=== PATIENT | male | born 1965 | race Caucasian/White ===

== ENCOUNTER 2018-03-03 17:39 | Emergency (ER) | payer OTHER, BC ==
[2018-03-03 17:49] VITALS: BP 147/101; PULSE 104; TEMP 98.8; BMI 36.6
[2018-03-03] MEDS ORDERED: IBUPROFEN 600 MG TABLET (FP) PO ONE ×2 (18:04→18:09)
[2018-03-03] MEDS ORDERED: DIPHTH,PERTUSS(ACELL),TET 0.5 ML DISP.SYRIN IM ONE (18:05)
--- NOTE | 2018-03-03 18:08 | PDOC ---
History of Present Illness - General History Source: Patient <Gloria Collins - Last Filed: 03/03/18 18:41> - History of Present Illness Initial Comments: This patient is a 52 year old male, with a PMHx of HTN, Hyperlipidemia, psoriasis, 4 left knee surgeries (meniscus repair and slight tear in ligament), who presents with right knee injury at 11:00 am today. Patient states that he tripped over some equipment and subsequently injured his right knee. He states that he put ice on his knee. He states that he took ibuprofen for the pain. He states that it began to swell and turn red and became warm to touch so he decided to come to the ER. Patient is unable to recall last tetanus PCP: Dr. Mcbride ([place]) Orthopedist: Dr. Cardenas <Portia Engle - Last Filed: 03/03/18 18:45> - General Chief Complaint: Injury Stated Complaint: RT KNEE INJURY Time Seen by Provider: 03/03/18 17:52 Past History - Past Medical History COPD: No HTN: Yes Hypercholesterolemia: Yes - Surgical History Orthopedic Surgery: Yes - Immunization History Immunization Up to Date: Yes - Suicide/Smoking/Psychosocial Hx Smoking History: Never smoked Have you smoked in the past 12 months: No Information on smoking cessation initiated: No 'Breaking Loose' booklet given: 06/04/13 Hx Alcohol Use: (occasional) Drug/Substance Use Hx: No Substance Use Type: Alcohol Hx Substance Use Treatment: No <Gloria Collins - Last Filed: 03/03/18 18:41> <Portia Engle - Last Filed: 03/03/18 18:45> - Past Medical History Allergies/Adverse Reactions: Allergies Allergy/AdvReac Type Severity Reaction Status Date / Time No Known Allergies Allergy Verified 03/03/18 17:40 Home Medications: Ambulatory Orders Ibuprofen 400 mg PO ASDIR 03/03/18 Ixekizumab [Taltz Syringe] 80 mg SQ ASDIR 03/03/18 Review of Systems - Review of Systems Comments:: GENERAL/CONSTITUTIONAL: No fever or chills. No weakness. HEAD, EYES, EARS, NOSE AND THROAT: No change in vision. No ear pain or discharge. No sore throat. CARDIOVASCULAR: No chest pain or shortness of breath. RESPIRATORY: No cough, wheezing, or hemoptysis. GASTROINTESTINAL: No nausea, vomiting, diarrhea or constipation. GENITOURINARY: No dysuria, frequency, or change in urination. MUSCULOSKELETAL: +right knee pain. No neck or back pain. SKIN: No rash NEUROLOGIC: No headache, vertigo, loss of consciousness, or change in strength/ sensation. ENDOCRINE: No increased thirst. No abnormal weight change. HEMATOLOGIC/LYMPHATIC: No anemia, easy bleeding, or history of blood clots. ALLERGIC/IMMUNOLOGIC: No hives or skin allergy. <Portia Engle - Last Filed: 03/03/18 18:45> *Physical Exam - Vital Signs Last Vital Signs Temp Pulse Resp BP Pulse Ox 98.8 F 104 H 20 147/101 H 100 03/03/18 17:39 03/03/18 17:39 03/03/18 17:39 03/03/18 17:39 03/03/18 17:39 <Gloria Collins S - Last Filed: 03/03/18 18:41> - Vital Signs Last Vital Signs Temp Pulse Resp BP Pulse Ox 98.8 F 104 H 20 147/101 H 100 03/03/18 17:39 03/03/18 17:39 03/03/18 17:39 03/03/18 17:39 03/03/18 17:39 - Physical Exam Comments: GENERAL: Awake, alert, and fully oriented, in no acute distress. Obese. HEAD: No signs of trauma EXTREMITIES: Painful and limited extension of right lower extremity. Tenderness at the base of the patella and the medial aspect of right knee. Minimal errythema on right kneecap. No clubbing or cyanosis. No cords. NEUROLOGICAL: Cranial nerves II through XII grossly intact. Normal speech, normal gait. Patient ambulated into ED. SKIN: Superficial abrasion on right kneecap. Warm, Dry, normal turgor, no rashes. <Portia Engle - Last Filed: 03/03/18 18:45> ED Treatment Course - Medications Given in the ED: ED Medications Discontinued Medications Generic Name Dose Route Start Last Admin Trade Name Freq PRN Reason Stop Dose Admin Diphtheria/Tetanus/Acell Pertussis 0.5 ml 03/03/18 18:05 03/03/18 18:14 Boostrix - IM 03/03/18 18:06 0.5 ml .ONCE ONE Administration Ibuprofen 600 mg 03/03/18 18:04 03/03/18 18:13 Motrin - PO 03/03/18 18:05 600 mg ONCE ONE Administration <Portia Engle - Last Filed: 03/03/18 18:45> Medical Decision Making - Medical Decision Making Ordered x-ray Ordered Motrin for pain Gave boostrix 03/03/18 18:45 Placed knee immobilizer. <Portia Engle - Last Filed: 03/03/18 18:45> *DC/Admit/Observation/Transfer - Discharge Dispostion Decision to Admit order: No <Gloria Collins - Last Filed: 03/03/18 18:41> - Attestations Scribe Attestion: 03/03/18 18:20 Documentation prepared by Portia Engle, acting as medical reception for Gloria Collins MD. <Portia Engle - Last Filed: 03/03/18 18:45> Diagnosis at time of Disposition: Knee joint injury Qualifiers: Encounter type: initial encounter Laterality: right Qualified Code(s): S89.91XA - Unspecified injury of right lower leg, initial encounter - Discharge Dispostion Disposition: HOME Condition at time of disposition: Stable - Referrals Referrals: Kehinde Mcbride [Primary Care Provider] - Wiliam Cardenas MD [Non Staff, Medical] - - Patient Instructions Printed Discharge Instructions: DI for Knee Sprain Additional Instructions: Elevation, rest , Motrin for pain with food - Post Discharge Activity Forms/Work/School Notes: Back to Work
== END 2018-03-03 18:45 | disposition home or self-care (01) ==
LOC: FER 17:39
PROC: 2W3QX1Z Immobilization of Right Lower Leg using Splint (ICD-10-PCS; principal; 2018-03-03)
DX: S89.91XA Unspecified injury of right lower leg, initial encounter (principal); X58.XXXA Exposure to other specified factors, initial encounter; Y93.89 Activity, other specified; Y92.9 Unspecified place or not applicable; I10 Essential (primary) hypertension; E78.5 Hyperlipidemia, unspecified; L40.9 Psoriasis, unspecified
CPT/HCPCS: 73562-TC-RT-FY; 90715; 99282-25

== ENCOUNTER 2019-05-15 11:20 | Emergency (ER) | payer BC, OTHER ==
--- NOTE | 2019-05-15 11:40 | PDOC ---
History of Present Illness - General Chief Complaint: Burn Stated Complaint: HOT WATER BURN RIGHT FOOT AT WORK Time Seen by Provider: 05/15/19 11:22 History Source: Patient Exam Limitations: No Limitations - History of Present Illness Initial Comments: 05/15/19 11:23 Mr. Hoyos is a 53-year-old male who presents emergency department with a complaint of right foot burn. Patient was working in a kitchen. He had a collagen of hot water which fell onto his right foot. He was wearing work shoes (there was a mesh over his instep) No trauma Last tetanus shot was 1 year ago No other injuries PMH: Denies PSH: Left knee surgery x4, right knee surgery x1, rhinoplasty Meds: Otezla ALL: NKDA Social: Alcohol use daily, no drugs, no tobacco FH: Noncontributory ROS: GENERAL/CONSTITUTIONAL: No: fever, chills, weakness, loss of appetite. HEAD, EYES, EARS, NOSE AND THROAT: No: change in vision, ear pain, discharge, sore throat, throat swelling. CARDIOVASCULAR: No: chest pain, lightheadedness, palpitations, syncope RESPIRATORY: No: cough, shortness of breath, wheezing, hemoptysis, stridor. GASTROINTESTINAL: No: nausea, vomiting, diarrhea, abdominal cramping, rectal bleeding, constipation. GENITOURINARY: No: dysuria, hematuria, frequency, urgency, flank pain. MUSCULOSKELETAL: No: back pain, neck pain, joint pain, muscle swelling or pain SKIN : Yes: Burn to the dorsum of the right foot no: lesions, pallor, rash or easy bruising. NEUROLOGIC: No: headache, vertigo, paresthesias, weakness ENDOCRINE: No: unexplained weight gain or loss HEMATOLOGIC/LYMPHATIC: No: anemia, easy bleeding, swelling nodes. PE: GENERAL: The patient is in no acute distress. HEAD: Normal with no signs of trauma. EYES: PERRLA, EOMI, sclera anicteric, conjunctiva clear. ENT: Ears normal, nares patent, oropharynx clear without exudates. Moist mucous membranes. NECK: Normal range of motion, supple LUNGS: Breath sounds equal, clear to auscultation bilaterally. No wheezes, and no crackles. HEART:Regular rate and rhythm, normal S1 and S2 without murmur, rub or gallop. ABDOMEN: Soft, nontender, normoactive bowel sounds. EXTREMITIES: Normal range of motion, no edema. NEUROLOGICAL: Cranial nerves II through XII grossly intact. Normal speech. No focal neurological deficits. MUSCULOSKELETAL: Back non-tender to palpation SKIN: There are 3 areas of superficial gomez noted on the dorsum of the right foot Each measuring approximately 2 cm in diameter 1 overlying the great toe 2 overlying the distal dorsum of the right foot No drainage Is this a multiple visit Asthma Patient?: No Past History - Past Medical History Allergies/Adverse Reactions: Allergies Allergy/AdvReac Type Severity Reaction Status Date / Time No Known Allergies Allergy Verified 05/15/19 11:22 Home Medications: Ambulatory Orders Apremilast [Otezla] 30 mg PO BID 05/15/19 Silver Sulfadiazine 1% Top Cr [Silvadene] 1 applic TP BID PRN #1 jar 05/15/19 COPD: No HTN: Yes Hypercholesterolemia: Yes - Surgical History Orthopedic Surgery: Yes - Immunization History Immunization Up to Date: Yes - Psycho Social/Smoking Cessation Hx Smoking History: Never smoked Have you smoked in the past 12 months: No 'Breaking Loose' booklet given: 06/04/13 Hx Alcohol Use: (occasional) Drug/Substance Use Hx: No Substance Use Type: Alcohol Hx Substance Use Treatment: No Medical Decision Making - Medical Decision Making 05/15/19 11:40 53-year-old male presenting to the emergency department with a hot water burn to the dorsum of his right foot Burn appears to be superficial at this time There was no hot oil 2+ DP Sensation intact Capillary refill less than 2-second Moving toes with no difficulty We will discharged home Patient to take NSAIDs for pain Silvadene topically Discharged home Follow-up with primary care physician Return to the ER for any other concerns or complaint Patient also asked to take photographs of his foot to monitor for signs of superinfection Discharge - Discharge Information Problems reviewed: Yes Clinical Impression/Diagnosis: Superficial burn of right foot Qualifiers: Encounter type: initial encounter Qualified Code(s): T25.121A - Burn of first degree of right foot, initial encounter Condition: Stable Disposition: HOME - Admission No - Follow up/Referral Referrals: Kehinde Mcbride [Primary Care Provider] - - Patient Discharge Instructions Patient Printed Discharge Instructions: How to Take Care of a Burn, DI for Gomez Additional Instructions: Mr. Hoyos, Thank you for coming into the emergency department today You have what appears currently to be a superficial/partial thickness burn to the top of your foot Please keep this area clean Please apply Silvadene cream to the affected burn areas, and cover loosely with gauze Please monitor for any signs of infection which would include -drainage, very red skin around burn, red skin streaking up the leg, increased pain Return to the emergency department immediately with ANY new, persistent or worsening symptoms. Continue any medications as previously prescribed by your physician. You can follow up with your primary doctor in 1 week or so regarding today's emergency department visit. Thank you for coming to the [facility] today for your care. It was a pleasure to see you today. Please note that your evaluation is INCOMPLETE until you follow-up with your doctor. - Post Discharge Activity Work/Back to School Note: Back to Work
[2019-05-15] MEDS ORDERED: SILVER SULFADIAZINE 1% TOP CREAM 50 GM JAR TP ONE ×2 (11:46→11:53)
[2019-05-15 11:49] VITALS: BP 174/105; PULSE 61; TEMP 99.4; BMI 35.6
== END 2019-05-15 12:11 | disposition home or self-care (01) ==
LOC: FER 11:20
PROC: 2W2SX4Z Dressing of Right Foot using Bandage (ICD-10-PCS; principal; 2019-05-15)
DX: T25.121A Burn of first degree of right foot, initial encounter (principal); X11.8XXA Contact with other hot tap-water, initial encounter; Y93.89 Activity, other specified; Y92.89 Other specified places as the place of occurrence of the external cause; I10 Essential (primary) hypertension; E78.00 Pure hypercholesterolemia, unspecified
CPT/HCPCS: 99282-25

== ENCOUNTER 2019-05-19 09:29 | Emergency (ER) | payer OTHER ==
[2019-05-19 09:43] VITALS: TEMP 98.3; BMI 35.6
--- NOTE | 2019-05-19 09:51 | PDOC ---
History of Present Illness - General Chief Complaint: Revisit,Wound Recheck Stated Complaint: WOUND CHECK Time Seen by Provider: 05/19/19 09:33 History Source: Patient Exam Limitations: No Limitations - History of Present Illness Initial Comments: 05/19/19 09:56 Chief complaint: Follow-up of the burn HPI: This is a 53-year-old man with a prior history of hypertension and hyperlipidemia who presents for follow-up of a burn on top of his right foot. 4 days ago he was seen in the emergency room after spilling hot water on his right foot. He sustained a burn to the dorsal aspect of the foot. He now comes in complaining of some ongoing discomfort to the area as well as some surrounding redness. There is no fever or chills. Review of systems: No fever or chills Positive pain to the dorsal aspect of the right foot Positive mild surrounding erythema to the right foot No foot swelling or ankle swelling No calf pain Past History - Past Medical History Allergies/Adverse Reactions: Allergies Allergy/AdvReac Type Severity Reaction Status Date / Time No Known Allergies Allergy Verified 05/15/19 11:22 Home Medications: Ambulatory Orders Apremilast [Otezla] 30 mg PO BID 05/15/19 Silver Sulfadiazine 1% Top Cr [Silvadene -] 1 applic TP BID PRN #1 jar 05/15/19 Doxycycline Hyclate 100 mg PO BID 7 Days #14 capsule MDD 2 05/19/19 Nadolol 20 mg PO ASDIR 30 Days #90 tablet MDD 3 05/19/19 COPD: No HTN: Yes Hypercholesterolemia: Yes - Surgical History Orthopedic Surgery: Yes - Immunization History Td Vaccination: Yes TDAP Vaccination: Yes Immunization Up to Date: Yes - Psycho Social/Smoking Cessation Hx Smoking History: Never smoked Have you smoked in the past 12 months: No 'Breaking Loose' booklet given: 06/04/13 Hx Alcohol Use: Yes Drug/Substance Use Hx: No Substance Use Type: Alcohol Hx Substance Use Treatment: No *Physical Exam - Vital Signs Last Vital Signs Temp Pulse Resp BP Pulse Ox 98.3 F 63 16 167/102 H 99 05/19/19 09:30 05/19/19 09:30 05/19/19 09:30 05/19/19 09:30 05/19/19 09:30 - Physical Exam 05/19/19 09:58 GENERAL: The patient is awake, alert, and fully oriented, in no acute distress. HEAD: Normal with no signs of trauma. EYES: Pupils equal, round and reactive to light, extraocular movements intact, sclera anicteric, conjunctiva clear. EXTREMITIES: The dorsal aspect of the right foot has a silver dollar sized burn wound with open skin. The area is pink and granulating. There is no discharge. There is no foul smell. There is slight surrounding erythema. There is no significant tenderness. Pulses are 1+ dorsalis pedis and posterior tibial. Capillary refill in the toes is 3 seconds. There are very small superficial varicosities around the ankle. There is no hyperpigmentation or edema. Range of motion of the toes is normal. Range of motion of the ankle is normal. There is no edema. NEUROLOGICAL: Normal speech, normal gait. PSYCH: Normal mood, normal affect. SKIN: Warm, Dry, normal turgor, no rashes or lesions noted other than the burn wound as noted above. 05/19/19 10:14 Patient was previously on blood pressure medication for hypertension. He has stopped taking his medication for some period of time. His blood pressure was noted elevated x2 in the emergency department today, and he has been advised to restart his blood pressure medication. He has no symptoms of headache, visual change, chest pain, shortness of breath, or change in urination. Medical Decision Making - Medical Decision Making 05/19/19 10:00 Patient here for follow-up of burn wound. Burn is over the dorsal aspect of the right foot overlying the metatarsals, silver dollar sized circular area, no involvement over the joints, consistent with second-degree burn. The possibility of early mild cellulitis is raised by the slight surrounding erythema. Patient will be started on antibiotics and have daily local wound care. He will be referred to Dr. Rodgers, plastic surgery, on Tuesday for close follow-up of the wound to monitor for healing, infection, improvement, or worsening. Patient advised in detail regarding importance of elevation of the foot to enhance circulation, reduce the risk of infection, and to enhance more rapid healing. He will be given a note to stay home from work. Discharge - Discharge Information Problems reviewed: Yes Clinical Impression/Diagnosis: Second degree burn of right foot Qualifiers: Encounter type: initial encounter Qualified Code(s): T25.221A - Burn of second degree of right foot, initial encounter Condition: Stable Disposition: HOME - Admission No - Additional Discharge Information Prescriptions: Doxycycline Hyclate 100 mg PO BID 7 Days #14 capsule MDD 2 Nadolol 20 mg PO ASDIR 30 Days #90 tablet MDD 3 - Follow up/Referral Referrals: Kehinde Mcbride [Primary Care Provider] - - Patient Discharge Instructions Patient Printed Discharge Instructions: DI for Gomez Additional Instructions: Today you were evaluated for follow-up of your burn wound on the right foot. The wound appears to be healing, the slight redness around the wound could be a possible sign of infection. You are advised to elevate the wound to the level of the heart as much as possible. Elevation helps improve circulation, speed healing and resolve any infection. You are also advised to start taking doxycycline antibiotic 100 mg 2 times a day. This is to treat and prevent infection. Follow-up with Dr. Rodgers, plastic surgery and branch operations specialist, on Tuesday. Call at 9 AM to schedule your appointment time on Tuesday. If you develop any worsening signs of infection such as fever, swelling, worsening redness, discharge from the wound, foul smell, be sure to see the doctor immediately or return to the emergency department. Your blood pressure was elevated today. You are being restarted on your regular blood pressure medication, nadolol 20 mg, 2 tablets in the morning and 1 in the evening. Be sure to start the medication and follow-up in the next 2 weeks with your primary care physician for a blood pressure check. - Post Discharge Activity Work/Back to School Note: Back to Work
[2019-05-19 10:00] VITALS: BP 145/103; PULSE 67
[2019-05-19] MEDS ORDERED: DOXYCYCLINE HYCLATE 100 MG CAPSULE PO ONE ×2 (10:12→10:13)
== END 2019-05-19 10:19 | disposition home or self-care (01) ==
LOC: FER 09:29
DX: Z48.00 Encounter for change or removal of nonsurgical wound dressing (principal)
CPT/HCPCS: 99281-25